=== PATIENT | female | born 1995 | race Caucasian/White ===

== ENCOUNTER 2020-11-30 12:09 | Emergency (ER) | payer OTHER, SELFPAY ==
--- NOTE | ~2020-11-30 | CT_ITS ---
EXAMINATION: CT cervical spine wo con DATE: 11/30/2020 13:17 INDICATION: Neck pain after lifting TECHNIQUE: Computed tomography (CT) of the cervical spine was performed without intravenous contrast. Automated exposure control and iterative reconstruction technique were employed. Exam dose: 110.67 mGy-cm total exam DLP. COMPARISON: None FINDINGS: C1 and C2 are normally aligned and the odontoid process is intact. No fracture or dislocation or locked facet or prevertebral soft tissue swelling. Cervical interspaces are preserved.. IMPRESSION: No significant abnormality Reviewed, dictated and finalized at [facility]. Reviewed, dictated and finalized at [facility]. IMPRESSION: No significant abnormality
[2020-11-30 12:16] VITALS: BP 134/88; PULSE 59; RESP 17; TEMP 36.6; O2SAT 100
--- NOTE | 2020-11-30 12:28 | PC.NURSE ---
Arrives s/p lifting heavy box at work, twisted wrong then felt sharp pain go up back to up btwn shoulder blades and neck, denies fall, denies numbness/tingling. Reports hx pinched nerves in neck and shoulders and sees a chiropractor. Placed in C collar by medics and given Zofran IV 4mg. Pt was able to ambulate from stretcher to cart
--- NOTE | 2020-11-30 13:39 | PC.NURSE ---
C collar removed, ok by ED provider. Pt c/o posterior neck and upper back pain, pain tolerable when not moving
--- NOTE | 2020-11-30 14:29 | ED.BACK ---
HPI - Back Pain/Injury General Chief Complaint: Back Pain/Injury Stated Complaint: neck and back pain Time Seen by Provider: 11/30/20 12:40 Source: patient Mode of arrival: EMS Limitations: no limitations History of Present Illness HPI Narrative: 25-year-old with a history of chronic upper back pain here with complaints of sudden onset of neck and upper back pain. Patient states that she is working at [employer] and was lifting a heavy box felt a pop in her neck and ever since then the pain has intensified. She denies any tingling numbness in both upper extremities. She states that every time she moves she gets intense pain in the upper back as well as in the neck area. She denies any other complaints. MD elicited complaint: back pain Pertinent past history: prior back pain Onset (ago): hour(s) (1) Timing: constant Severity: moderate Similar Symptoms Previously: Yes Quality: aching Location: thoracic spine Radiation: neck Exacerbating factors: movement Relieving factors: immobilization Context: while lifting Associated symptoms: denies other symptoms Related Data Home Medications Medication Instructions Recorded Confirmed ibuprofen [Advil] 11/30/20 Allergies Allergy/AdvReac Type Severity Reaction Status Date / Time morphine AdvReac Vomiting Verified 11/30/20 12:22 Review of Systems Review of Systems: All systems reviewed & are unremarkable except as noted in HPI and below Constitutional: Constitutional: Reports no additional constitutional complaints Eyes: Eyes: Reports no additional eye complaints Cardiovascular: Cardiovascular: Reports no additional cardiovascular complaints Respiratory: Respiratory: Reports no additional respiratory complaints Gastrointestinal: Gastrointestinal: Reports no additional gastrointestinal complaints Musculoskeletal: Musculoskeletal: Reports as per HPI Neurologic: Reports system reviewed and no additional complaints, except as documented Psychiatric: Psychiatric: Reports no additional psychiatric complaints Endocrine: Endocrine: Reports no additional endocrine complaints Exam Narrative: Exam Narrative: GENERAL: Well-appearing, well-nourished, and in no acute distress. HEAD: Normocephalic, atraumatic. EYES: PERRLA and EOMI. NECK: In c-collar, C-spine tenderness CHEST: Clear to auscultation. No respiratory distress. HEART: Regular rate and rhythm. No murmur heard. Normal peripheral pulses.. EXTREMITIES: Normal range of motion. No edema. SKIN: Warm, dry, no rash. NEURO: No focal deficits. Alert and oriented x3. PSYCH: Normal mood and affect. Course Course Emergency Course: Inform patient about her C-spine x-rays. At this time her pain is myofascial in origin. Advised her to take pain medication and muscle relaxers as prescribed. Patient requested no narcotics. Vital Signs Vital signs: Vital Signs Temperature 36.6 C 11/30/20 12:16 Pulse Rate 59 L 11/30/20 12:16 Respiratory Rate 17 11/30/20 12:16 Blood Pressure 134/88 11/30/20 12:16 Pulse Oximetry 100 11/30/20 12:16 Temperature 36.6 C 11/30/20 12:16 Pulse Rate 59 L 11/30/20 12:16 Respiratory Rate 17 11/30/20 12:16 Blood Pressure 134/88 11/30/20 12:16 Pulse Oximetry 100 11/30/20 12:16 MDM - Back Pain/Injury Differential Diagnosis Differential diagnosis: Likely thoracic back pain and other (Acute disc herniation, DJD of the C-spine) Imaging Data Radiologist's impression: ITS Impressions Cervical Spine CT 11/30/20 13:30 IMPRESSION: No significant abnormality Discharge Plan Discharge Clinical Impression: Neck arthralgia Patient Disposition: Home, Self-Care Condition: Stable Instructions: Back Pain (ED) Additional Instructions: Take medication as prescribed. Follow-up with your primary doctor for possible PT Prescriptions: New ibuprofen 600 mg tablet 600 mg PO TID PRN (Reason: pain) Qty: 30 RF: 0 cyclobenzaprine 5 mg tabl
[2020-11-30 14:50] VITALS: BP 119/81; PULSE 64; RESP 17; O2SAT 100
== END 2020-11-30 14:51 | disposition home or self-care (01) ==
PROVIDERS: Emergency Provider Family Medicine
DX: M54.2 Cervicalgia (principal)
CPT/HCPCS: 72125; 99284